=== PATIENT | female | born 1950 | race Caucasian/White ===

== ENCOUNTER 2016-12-02 19:03 | Emergency (ER) | payer OTHER, MEDICAID ==
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
[2016-12-02] MEDS ORDERED: ALBUTEROL 60 PUFFS/8 GM MDI IH ONE (19:26)
[2016-12-02 19:27] VITALS: RESP 16; TEMP 98.4; O2SAT 94
[2016-12-02] MEDS ORDERED: ALBUTEROL INH PREPACK MDI TAKEHOME ONE ×2 (19:31→19:33)
[2016-12-02 20:01] VITALS: BP 169/96; PULSE 84
== END 2016-12-02 19:55 | disposition home or self-care (01) ==
LOC: CED 19:03
DX: Z77.098 Contact with and (suspected) exposure to other hazardous, chiefly nonmedicinal, chemicals (principal); J44.9 Chronic obstructive pulmonary disease, unspecified; Z91.040 Latex allergy status